=== PATIENT | female | born 2000 | race American Indian/Alaskan Native ===

== ENCOUNTER 2022-02-08 12:50 | Emergency (ER) | payer OTHER ==
[2022-02-08] MEDS ORDERED: ACETAMINOPHEN W/CODEINE 300-30 MG TAB PO ONE (13:49)
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
--- NOTE | 2022-02-08 14:52 | XRay Report ---
CERVICAL SPINE 3 VIEWS INDICATION / CLINICAL INFORMATION: pain. COMPARISON: None available. FINDINGS: BONES / JOINT(S): No acute fracture or subluxation. No significant arthritis. SOFT TISSUES: No significant abnormality. ADDITIONAL FINDINGS: None. Signer Name: Edi Curiel MD Signed: 02/08/2022 2:48 PM Workstation Name: [id number]
--- NOTE | 2022-02-08 14:53 | XRay Report ---
RIGHT WRIST 3 VIEWS INDICATION / CLINICAL INFORMATION: pain. COMPARISON: None available. FINDINGS: BONES / JOINT(S): No acute fracture or subluxation. No significant arthritis. SOFT TISSUES: No significant abnormality. ADDITIONAL FINDINGS: None. Signer Name: Edi Curiel MD Signed: 02/08/2022 2:48 PM Workstation Name: [id number]
[2022-02-08 15:35] VITALS: BP 123/86
== END 2022-02-08 17:57 | disposition home or self-care (01) ==
LOC: ED 12:50
DX: S60.221A Contusion of right hand, initial encounter (principal); M79.18 Myalgia, other site; Z79.899 Other long term (current) drug therapy; V87.7XXA Person injured in collision between other specified motor vehicles (traffic), initial encounter; Y93.89 Activity, other specified; Y92.488 Other paved roadways as the place of occurrence of the external cause; Y99.8 Other external cause status
CPT/HCPCS: 72040; 99283